=== PATIENT | male | born 1960 | race Caucasian/White ===

== ENCOUNTER → 2018-02-04 | Outpatient (CLI) | payer OTHER ==
--- NOTE | 2018-02-04 15:02 | MR ---
EXAMINATION TYPE: MR brain wo/w con DATE OF EXAM: 02/04/2018 COMPARISON: NONE HISTORY: 57-year-old male Left-sided trigeminal neuralgia, headache TECHNIQUE: Multiplanar, multisequence images of the brain and brainstem were acquired before and aft er administration of 8.5 mL IV Gadavist. Diffusion weighted imaging is performed. FINDINGS: No evidence for acute infarction, hemorrhage, mass, mass effect, midline shift, herniation, effacemen t of basal cisterns, or extra-axial fluid collection. The ventricles and sulci are age-appropriate. Major intracranial flow voids are intact. T2/FLAIR weighted sequences show mild scattered burden of T2 bright white matter change in the subcor tical and periventricular regions of both cerebral hemispheres. Largest focus in the left periatrial white matter measuring 1.5 cm by numerous other foci measure 5 mm and smaller predominantly in the fr ontal frontal lobes with approximately 20 small foci in each side. Midline structures demonstrate normal morphology. The craniocervical junction is normal. Post contrast images demonstrate no evidence of pathologic enhancement. Dural venous sinuses are pat ent. Preserved fluid signal in the region of Meckel's cave. No abnormality seen in the prepontine or perim esencephalic cisterns. Mild to moderate mucosal thickening inferior maxillary sinuses and ethmoid air cells. Globes are inta ct. Small amount of trapped fluid in the inferior right mastoid air cells. A prominent periapical enh ancement involving the left maxillary first premolar, coronal postcontrast image 2 axial postcontrast image 1. There is a prominent vessel which courses horizontally through the substance of the left lateral pter ygoid muscle. No abnormal mass or enhancement seen directly deep to the left lateral pterygoid along the expected course of the mandibular nerve. IMPRESSION: 1. No acute intracranial abnormality seen. 2. Mild to moderate scattered burden of T2 bright white matter change predominantly in the bifrontal subcortical regions. These are nonspecific and could relate to changes of chronic small vessel ischem ic disease. Chronic migraines and demyelinating disease are differential considerations. 3. Prominent periapical enhancement involving the left maxillary first premolar. This may correspond to a periapical lucency/abscess relating to odontogenic disease. 4. A large vessel coursing horizontally through the substance of the left lateral pterygoid muscle. C linical correlation can be made as to the possibility of some degree of vascular abutment with the le ft mandibular nerve which would be expected to course deep to the lateral pterygoid at this level.
== END | disposition home or self-care (01) ==
LOC: RADMRIMAIN 11:14
PROVIDERS: ATTEND Psychiatry & Neurology Neurology
DX: R90.89 Other abnormal findings on diagnostic imaging of central nervous system (principal); G50.0 Trigeminal neuralgia
CPT/HCPCS: 70553; A9581